=== PATIENT | female | born 1990 | race Hispanic/Latino ===

== ENCOUNTER 2017-06-11 11:36 | Emergency (ER) | payer BC, MEDICAID, OTHER ==
[~2017-06-11 11:36] MED LIST: PREN-64 PO
== END 2017-06-11 13:18 | disposition home or self-care (01) ==
LOC: EDH 11:36
DX: O26.892 Other specified pregnancy related conditions, second trimester (principal); Z3A.18 18 weeks gestation of pregnancy; Z98.890 Other specified postprocedural states
CPT/HCPCS: 99282

== ENCOUNTER 2017-09-24 12:10 | Observation (INO) | payer BC ==
[~2017-09-24] VITALS: Ht 154.9 cm; Wt 88.0 kg
[2017-09-24 12:29] VITALS: BP 145/91
[2017-09-24] MEDS: DEXAMETHASONE SOD PHOSPHATE 4 MG/ML 1ML VIAL IM SCH ×2 (13:51→19:03)
[2017-09-24] MEDS: SODIUM CHLORIDE 0.9% 10 ML VIAL IV SCH ×2 (13:52→21:09)
[2017-09-24] MEDS: ACETAMINOPHEN EXTRA STRENGTH 500 MG TABLET PO PRN ×2 (15:13→21:09)
[2017-09-24 16:02] VITALS: BP 156/74
[2017-09-24 20:15] VITALS: BP 134/86
[2017-09-24] MEDS: TERBUTALINE SULFATE VIAL 1MG/ML SQ PRN (22:40)
[2017-09-25] MEDS: TERBUTALINE SULFATE VIAL 1MG/ML SQ PRN (00:08)
[2017-09-25] MEDS: LACTATED RINGERS 1000ML 1,000 ML IV SCH ×2 (00:10→03:56)
[2017-09-25] MEDS: DEXAMETHASONE SOD PHOSPHATE 4 MG/ML 1ML VIAL IM SCH ×2 (01:33→07:34)
[2017-09-25 08:10] VITALS: BP 128/55
[2017-09-25 11:20] VITALS: BP 125/78
[2017-09-25] MEDS ORDERED: DIPH,PERTUSS(ACELL),TET VAC/PF 0.5 ML VIAL IM SCH (14:30)
[2017-09-25 14:39] LABS: COLLECTION PERIOD,URINE 24 HR; TOTAL VOLUME 24HRS,URINE 2800 mL; TPROTEIN TIMED,URINE 10 mg/dL; TPROTEIN U,24HR CALC 280 mg/24HR (0-165)
[2017-09-25 15:22] VITALS: BP 130/77
== END 2017-09-25 16:50 | disposition home or self-care (01) ==
LOC: WSH 12:10 → LDH 22:32 → WSH 09-25 08:10
PROVIDERS: ADMIT Specialist; ATTEND Specialist
DX: O62.9 Abnormality of forces of labor, unspecified (principal); O60.03 Preterm labor without delivery, third trimester; Z3A.33 33 weeks gestation of pregnancy
CPT/HCPCS: 36415; 82565; 82575; 84156; 90471; 90715; 96360; 96361 ×2; 96372 ×4; G0378 ×30; J1100 ×4; J3105; J7120